=== PATIENT | female | born 1960 | race African-American/Black ===

== ENCOUNTER 2021-11-25 08:34 | Outpatient (REF) | payer OTHER, SELFPAY ==
[2021-11-25 09:27] LABS: Cholesterol 224 mg/dL; HDL Cholesterol 47 mg/dL; LDL Cholesterol Calculated 157 mg/dl; Triglycerides 100 mg/dL
[2021-11-28 18:41] LABS: Lyme Abs Screen <0.90 index
[2021-11-29 13:02] LABS: Anti Nuclear Antibody Screen NEGATIVE (NEGATIVE)
== END 2021-11-25 08:35 | disposition home or self-care (01) ==
LOC: HO.LAB 08:34
PROVIDERS: PCP Nurse Practitioner Family; Visit Provider Psychiatry & Neurology Neurology
DX: I67.9 Cerebrovascular disease, unspecified (principal)
CPT/HCPCS: 36415; 80061; 85652; 86038; 86039; 86617; 86618